=== PATIENT | female | born 1965 | race Caucasian/White ===

== ENCOUNTER 2024-05-30 14:28 | Emergency (ER) | payer BC, OTHER ==
[2024-05-30 15:10] LABS: Absolute Lymphocytes (CBC) 1.5 K/uL (0.7-4.9); Absolute Monocytes 0.6 K/uL (0.1-1.3); Absolute Neutrophil 4.2 K/uL (1.8-8.0); Basophils % 0.3 % (0-1.3); Eosinophils % 0.5 % (0-4.4); Hematocrit 39.6 % (36.0-45.0); Hemoglobin 13.5 g/dL (12.0-15.0); Lymphocytes % 23.2 % (15.3-44.8); MCH 31.9 pg (27.0-35.0); MCHC 34.2 g/dL (32.0-36.0); MCV 93.5 fL (80-100); MPV 6.4 fL (7.6-11.3); Platelets 376 thou/uL (152-406); RBC Red Blood Cell Count 4.23 M/uL (3.86-4.86); Red Cell Distribution Width 12.5 % (12.1-15.2)
[2024-05-30 15:14] LABS: PT Prothrombin Time 11.7 SECONDS (9.4-12.5); PTT, Activated Partial Thromb 27.3 SECONDS (24.3-36.9); Protime INR 1.05
[2024-05-30 15:17] LABS: Specific Gravity > 1.030 (1.005-1.030); Sqamous Epithelial <5 /HPF (None Seen); Transitional Epithelial <5 /HPF (None Seen); Urine Bacteria <20 /HPF (<20); Urine Bilirubin NEGATIVE (Negative); Urine Blood Negative (Negative); Urine Clarity Extremely Turbid (Clear); Urine Color Dark-Yellow (Yellow); Urine Culture Reflex Order REFLEXED; Urine Glucose NEGATIVE (Negative); Urine Ketones NEGATIVE (Negative); Urine Microscopic Reflex YN ORDER UMIC; Urine Mucus 4+ /HPF (None Seen); Urine Nitrite NEGATIVE (Negative); Urine Protein 1+ (Negative); Urine RBC <5 /HPF (None Seen); Urine Urobilinogen 1+ (Normal)
[2024-05-30 15:22] LABS: Albumin/Globulin Ratio 1.1 (1.1-1.8); Anion Gap 8.6 mEq/L (5.0-15.0); Bilirubin Total 0.6 mg/dL (0.2-1.0); Globulin 3.5 g/dL (2.3-3.5); Potassium 3.6 mEq/L (3.5-5.1); Protein, Total 7.5 g/dL (6.4-8.2)
[2024-05-30 15:27] LABS: Barbiturates NEGATIVE (NEGATIVE); Benzodiazepines NEGATIVE (NEGATIVE); Cocaine NEGATIVE (NEGATIVE); METHAMPHETAM POSITIVE (NEGATIVE); Methadone NEGATIVE (NEGATIVE); Opiates NEGATIVE (NEGATIVE); Phencyclidine NEGATIVE (NEGATIVE); THC Cannibis NEGATIVE (NEGATIVE)
--- NOTE | 2024-05-30 15:39 | RAD REPORT ---
EXAMINATION: MRI BRAIN WITHOUT CONTRAST CLINICAL INDICATION: AMS, aphasic TECHNIQUE: Multiplanar multisequence MR images of the brain were obtained without intravenous contras t. Unless otherwise specified, incidental findings do not require dedicated imaging follow-up. COMPARISON: No prior exam. FINDINGS: INTRACRANIAL: Diffusion-weighted images show no acute or early subacute infarction. No abnormal brain parenchymal signal. The ventricles are normal in size and morphology. No augmented susceptibility. There is no mass effect or midline shift. No abnormal extraaxial fluid collection. VASCULATURE: Normal signal voids in the larger intracranial arteries and dural venous sinuses. SINUSES: The paranasal sinuses and mastoid air cells are predominantly clear. BONE: The marrow signal pattern is within normal limits. IMPRESSION: Negative for acutre CVA or other acute intracranial finding.
--- NOTE | 2024-05-30 15:39 | RAD REPORT ---
EXAMINATION: ONE VIEW CHEST XR CLINICAL INDICATION: AMS TECHNIQUE: Frontal chest projection is submitted. Examination is limited by patient positioning and t echnique. COMPARISON: 02/03/2012 FINDINGS: The lungs are well inflated and clear. The heart is normal in size. No displaced fractures identified . Mild thoracic dextroscoliosis. IMPRESSION: No acute intrathoracic abnormalities.
[2024-05-30 16:37] LABS: SARS-CoV-2 Antigen CONTROL BLUE LINE VIS/BG OK; SARS-CoV-2 Antigen Rapid Res Negative (Negative)
[2024-05-30] MEDS ORDERED: NA CHLORIDE 0.9% 500 ML ONE (16:44)
--- NOTE | 2024-05-30 17:33 | ER ---
Nurse's Notes [facility] Name: Marielos Lee Age: 58 yrs Sex: Female : 1965 Arrival Date: 05/30/2024 Time: 14:28 Bed 3 Private MD: Diagnosis: Altered mental status, facial numbness, right upper extremity weakness;Generalized weakness, history of rheumatoid arthritis, right facial numbness, Presentation: 05/30 14:40 Chief complaint: Patient states: Dropped off by friend in ER bay outside. Pt opening ld1 eyes but not responding. Not responsive to painful stimuli. Coronavirus screen: At this time, the client does not indicate any symptoms associated with coronavirus-19. Ebola Screen: No symptoms or risks identified at this time. Initial Sepsis Screen: Does the patient meet any 2 criteria? No. Patient's initial sepsis screen is negative. Does the patient have a suspected source of infection? No. Patient's initial sepsis screen is negative. Risk Assessment: Do you want to hurt yourself or someone else? Patient reports no desire to harm self or others. Onset of symptoms was May 30, 2024. 14:40 Method Of Arrival: Other ld1 14:40 Acuity: JOSEPH 2 ld1 Triage Assessment: 14:45 General: Appears in no apparent distress. Behavior is inappropriate for age, ld1 unresponsive. Pain: Unable to use pain scale. Patient is disoriented. Patient is unresponsive. EENT: No signs and/or symptoms were reported regarding the EENT system. Neuro: Level of Consciousness is confused, Oriented to none. Cardiovascular: Capillary refill < 3 seconds Patient's skin is warm and dry. Rhythm is sinus rhythm. Respiratory: Airway is patent Respiratory effort is even, unlabored. GI: Abdomen is flat, non-distended. : No signs and/or symptoms were reported regarding the genitourinary system. Derm: No signs and/or symptoms reported regarding the dermatologic system. Musculoskeletal: No signs and/or symptoms reported regarding the musculoskeletal system. Historical: - Allergies: 15:14 No Known Allergies; ll1 - PMHx: 15:14 RA; ll1 - Immunization history:: Adult Immunizations up to date. - Family history:: not pertinent. - Hospitalizations: : No recent hospitalization is reported. - Social history:: Smoking status: unknown. Screenin:56 [facility] ED Fall Risk Assessment (Adult) History of falling in the last 3 months, ld1 including since admission No falls in past 3 months (0 pts) Confusion or Disorientation Yes (5 pts) Intoxicated or Sedated No (0 pts) Impaired Gait Yes (1 pt) Mobility Assist Device Used No (0 pt) Altered Elimination No (0 pt) Score/Fall Risk Level 3 or more points = High Risk Oriented to surroundings, Maintained a safe environment, Educated pt \T\ family on fall prevention, incl call for assistance when getting out of bed, Assessed \T\ reinforced patient's understanding of fall precautions, Provided non-skid footwear, Hourly rounding (assess needs \T\ fall precautionary measures) done, Used ambulatory aids as needed (educated on \T\ assisted with), Used gait belt as appropriate Implemented a Fall Risk Plan of Care, Apply high fall risk patient identification: yellow non skid footwear/ fall signage, Placed fall mat w/ non beveled edge next to bed, Activated bed/chair alarm, Remained w/in arm's length of patient and in sight while toileting, Offered frequent toileting (1:1 observation), Remained with patient while ambulating, Utilized family, sitter, or virtual drop wire operator as indicated. Abuse screen: Denies threats or abuse. Denies injuries from another. Nutritional screening: No deficits noted. Tuberculosis screening: No symptoms or risk factors identified. Assessment: 14:57 Reassessment: Patient and/or family updated on plan of care and expected duration. Pain ll1 level reassessed. to MRI via stretcher. 15:15 Reassessment: Pt back from MRI. Friend at bedside speaking with ER doctor. ld1 16:30 Reassessment: Patient appears in no apparent distress at this time. No changes from ld1 previously documented assessment. Pt responding at this time. Difficulty speaking has resolved. 17:39 Reassessment: Patient appears in no apparent distress at this time. No changes from ld1 previously documented assessment. Patient and/or family updated on plan of care and expected duration. Pain level reassessed. Patient states symptoms have improved. 18:02 Reassessment: Patient appears in no apparent distress at this time. No changes from ld1 previously documented assessment. Patient and/or family updated on plan of care and expected duration. Pain level reassessed. 18:38 Reassessment: Patient appears in no apparent distress at this time. No changes from ld1 previously documented assessment. Patient and/or family updated on plan of care and expected duration. Pain level reassessed. 19:52 Reassessment: Took over care of pt. Pt alert and oriented, no any distress noted. Pt ay denies CP, SOB, N/V. Pt on cardiac nurse, VSS. 22:00 Reassessment: REPORT CALLED TO [facility] ER. dd2 Vital Signs: 14:24 BP 137 / 67; Pulse 88; ld1 14:30 BP 140 / 73; Pulse 87; Resp 18; Pulse Ox 100% on R/A; ld1 14:40 BP 140 / 73; Pulse 83; Resp 16; Temp 98.2(TE); Pulse Ox 100% on R/A; Weight 54.43 kg; ld1 Height 5 ft. 4 in. ; 14:45 BP 161 / 76; Pulse 80; Resp 17; Pulse Ox 100% on R/A; ld1 15:56 BP 139 / 68; Pulse 82; Resp 13; Pulse Ox 100% on R/A; ld1 16:52 BP 133 / 69; Pulse 83; Resp 11; Pulse Ox 100% on R/A; ld1 17:39 BP 127 / 68; Pulse 77; Resp 12; Pulse Ox 100% on R/A; ld1 18:02 BP 129 / 68; Pulse 77; Resp 13; Pulse Ox 100% on R/A; ld1 18:38 BP 116 / 61; Pulse 74; Resp 18; Pulse Ox 100% on R/A; ld1 19:15 BP 130 / 65; Pulse 78; Resp 16; Pulse Ox 100% on R/A; dd2 20:15 BP 134 / 67; Pulse 84; Resp 15; Pulse Ox 100% on R/A; dd2 21:15 BP 128 / 63; Pulse 75; Resp 15; Pulse Ox 100% on R/A; dd2 22:05 BP 120 / 63; Pulse 73; Resp 15; Pulse Ox 100% on R/A; dd2 14:40 Body Mass Index 20.60 (54.43 kg, 162.56 cm) ld1 [place] Coma Score: 21:10 Eye Response: spontaneous(4). Motor Response: obeys commands(6). Verbal Response: sp4 oriented(5). Total: 15. NIH Stroke Scale Scores: 21:19 NIHSS Score: 11 sp4 ED Course: 14:25 No provider procedures requiring assistance completed. ld1 14:25 Patient has correct armband on for positive identification. Placed in gown. Bed in low ld1 position. Call light in reach. Side rails up X2. court recording monitor on. Pulse ox on. NIBP on. Door closed. Noise minimized. Warm blanket given. 14:29 Patient arrived in ED. bd 14:33 Tera Velasquez MD is Attending Physician. rn 14:42 Triage completed. ld1 14:42 Inserted saline lock: 20 gauge in right antecubital area, using aseptic technique. ld1 Blood collected. Flushed with 10 mL NS. 14:45 Arm band placed on right wrist. ld1 14:57 Blood Culture Adult (2) Sent. bc6 14:57 CBC with Diff Sent. bc6 14:57 CMP Sent. bc6 14:57 Lactate w/ 2H reflex if indic. Sent. bc6 14:57 Protime (+inr) Sent. bc6 14:57 Ptt, Activated Sent. bc6 14:57 Urinalysis w/ reflexes Sent. bc6 14:57 pt daughter..........[phone] Yaya. bd 15:16 Brain Wo Cont MRI In Process Unspecified. EDMS 15:32 Chest Single View XRAY In Process Unspecified. EDMS 15:55 Chelsea Bocanegra, RN is Primary Nurse. ld1 16:04 Flu Sent. ld1 16:04 SARS-COV-2 Antigen Rapid Sent. ld1 16:52 AMMONIA Sent. ld1 16:52 ETOH Level Sent. ld1 16:52 Salicylate Sent. ld1 16:52 Acetaminophen Sent. ld1 17:02 initiated transfer to [facility]. bd 17:14 pt denied at [facility] due to no capacity at this time, Per Carina. bd 17:32 Arsen Varner MD is Hospitalizing Provider. rn 19:[address] [facility] 1900- no one answered. kmf 19:10 Attending Physician role handed off by Tera Velasquez MD sp3 19:10 Kristine Jennings MD is Attending Physician. sp3 19:10 called [facility] for transfer spoke with Will. [facility] declined due to capacity. kmf 19:26 initiated transfer with [facility]- spoke with Marnie. [facility] decided due to capacity. kmf 20:10 re-initiated transfer with [facility] transfer, spoke with Samaria. kmf 20:13 Attending Physician role handed off by Kristine Jennings MD sp4 20:13 Missael Nicolas MD is Attending Physician. sp4 21:40 pt was accepted to [facility] ER - by Dr. Angeles, R \T\ 2135. Samaria Hodges, 2136. [facility] number for nurse to nurse report [phone] - [facility] to transfer pt once nurse to nurse is complete. 22:45 Patient transferred, IV remains in place. dd2 22:45 Provided Education on: transfer education. dd2 Administered Medications: 16:52 Drug: NS 0.9% IV 500 ml IV at bolus once; to be given as a bolus over 30 minutes Route: ld1 IV; Rate: bolus; Site: right antecubital; 19:55 Follow up: Response: No adverse reaction; IV Status: Completed infusion; IV Intake: ay 500ml 20:54 Drug: Methocarbamol PO 1500 mg PO once Route: PO; sb4 21:24 Follow up: Response: No adverse reaction dd2 20:55 Drug: morphine IVP or IV 4 mg IVP once over 4 mins Route: IVP; Infused Over: 4 mins; sb4 Site: right antecubital; 21:10 Follow up: Response: No adverse reaction dd2 20:55 Drug: Ondansetron IVP 4 mg IVP once; over 2 minutes Route: IVP; Site: right antecubital;sb4 21:10 Follow up: Response: No adverse reaction dd2 22:45 Drug: morphine IVP or IV 2 mg IVP once over 4 mins Route: IVP; Infused Over: 4 mins; dd2 Site: right antecubital; 22:48 Follow up: Response: Medication administered at discharge. dd2 22:45 Drug: Ondansetron IVP 4 mg IVP once; over 2 minutes Route: IVP; Site: right antecubital;dd2 22:48 Follow up: Response: Medication administered at discharge. dd2 Intake: 19:55 IV: 500ml; Total: 500ml. ay Outcome: 17:33 Decision to Hospitalize by Provider. rn 19:12 ER care complete, transfer ordered by MD. sp3 22:45 Transferred by ground EMS to [facility], Transfer form completed. dd2 22:45 Condition: stable 22:45 Instructed on the need for transfer, Demonstrated understanding of instructions, 22:47 Patient left the ED. dd2 NIH Stroke Scale - NIH Stroke Score Date: 05/30/2024 Time: 21:19 Total Score = 11 10. Dysarthria (speech clarity - read or repeat words) - 0(Normal) 11. Extinction and Inattention (visual/tactile/auditory/spatial/personal) - 0(No abnormality) 1a. Level of Consciousness (LOC) - 0(Alert) 1b. Level of Consciousness (LOC) (Month \T\ Age) - 0(Both) 1c. LOC Commands (Open \T\ Closes Eyes/Parts Counter Sales Person) - 0(Both) 2. Best Gaze (Lateral Gaze Paresis) - 0(Normal) 3. Visual Field Loss - 0(No visual loss) 4. Facial Palsy - 0(Normal) 5a. Left Arm: Motor (10-second hold) - 2(Drift, some effort against gravity) 5b. Right Arm: Motor (10-second hold) - 2(Drift, some effort against gravity) 6a. Left Leg: Motor (5-second hold - always test supine) - 3(No effort against gravity) 6b. Right Leg: Motor (5-second hold - always test supine) - 3(No effort against gravity) 7. Limb Ataxia (finger/nose \T\ heel/deal - test with eyes open) - 0(Absent) 8. Sensory Loss (pinprick arms/legs/face) - 1(Mild to moderate loss) 9. Best Language: Aphasia (description/naming/reading) - 0(No aphasia) Initials: sp4 Signatures: Dispatcher [employer] EDMS Fatoumata Pierce Roman, MD MD rn Lewis, Lynsay, RN RN ll1 Chelsea Bocanegra RN RN ld1 Kristine Jennings MD MD sp3 Radha Cano, PA-C PA-C sb4 Amina Navas Sergey, MD MD sp4 Nayeli Gregory [facility] FOZIA, DINORA, RN RN dd2 Yakubu, Awudu, RN RN ay
--- NOTE | 2024-05-30 17:33 | EDPHYS ---
Physician Documentation [facility] Name: Marielos Lee Age: 58 yrs Sex: Female : 1965 Arrival Date: 05/30/2024 Time: 14:28 Bed 3 Private MD: ED Physician Missael Nicolas HPI: 05/30 14:44 This 58 yrs old Female presents to ER via Other with complaints of AMS. rn 14:44 The patient presents with decreased responsiveness. Onset: The symptoms/episode rn began/occurred at an unknown time. Current symptoms: In the emergency department the patient's symptoms are unchanged from the initial presentation. It is unknown whether or not the patient has had similar symptoms in the past. Patient dropped off by Dr. Julio C Aranda, he was a bystander noticed her altered and unresponsive in her car. I spoke with Dr. Aranda who stated initially patient was able to answer his questions and when asked last known normal she told him that she last went to [facility] yesterday and felt extreme fatigue, but could not give more specific symptoms than that. He said that she was answering with few word sentences and appeared very weak, unable to walk or support herself. The patient had told him that she has rheumatoid arthritis and had just taken all of her medication and wants, unknown medication type or name.. 21:20 Patient's medications include hydroxychloroquine 200 mg p.o. twice daily, Crestor, sp4 telmisartan HCTZ, trazodone, progesterone 400 mg daily, also Dextromethorphan/bupropion (DXM/BUP) Auvelity 45-105 mg . Patient care was assumed from Dr. Jennings who reports that patient is awaiting for transfer to the [facility].. Historical: - Allergies: 15:14 No Known Allergies; ll1 - PMHx: 15:14 RA; ll1 - Immunization history:: Adult Immunizations up to date. - Family history:: not pertinent. - Hospitalizations: : No recent hospitalization is reported. - Social history:: Smoking status: unknown. ROS: 14:44 Unable to obtain ROS due to altered mental status, rn 20:14 Constitutional: Negative for fever, chills, and weight loss, positive for decreased sp4 responsiveness and fatigue. Exam: 14:44 Constitutional: This is a well developed, well nourished patient who is awake, opens rn eyes but does not follow commands. Head/Face: Normocephalic, atraumatic. Eyes: Pupils equal round and reactive to light, extra-ocular motions intact. No nystagmus ENT: Dry mucous membranes, no stridor Cardiovascular: Regular rate and rhythm . No pulse deficits. Respiratory: No increased work of breathing, no retractions or nasal flaring. Abdomen/GI: Soft, non-tender Skin: Warm, dry MS/ Extremity: Pulses equal, no cyanosis. Neuro: Awake, not following commands. Attempts to speak but cannot get words out. Responsive to pain 15:42 ECG was reviewed by the Attending Physician. rn 21:10 Constitutional: This is a well developed, well nourished patient who is awake, alert, sp4 and in no acute distress. Head/Face: Normocephalic, atraumatic. Eyes: Pupils equal round and reactive to light, extra-ocular motions intact. Lids and lashes normal. Conjunctiva and sclera are not injected. Cornea within normal limits. Periorbital areas with no swelling, redness, or edema. ENT: Nares patent. No nasal discharge, no septal abnormalities noted. Tympanic membranes are normal and external auditory canals are clear. Oropharynx with no redness, swelling, or masses, exudates, or evidence of obstruction, uvula midline. Mucous membranes moist. Neck: Trachea midline, no thyromegaly or masses palpated, and no cervical lymphadenopathy. Supple, full range of motion without nuchal rigidity, or vertebral point tenderness. Chest/axilla: Normal chest wall appearance and motion. Nontender with no deformity. No lesions are appreciated. Cardiovascular: Regular rate and rhythm with a normal S1 and S2. No gallops, murmurs, or rubs. Normal PMI, no JVD. No pulse deficits. Respiratory: Lungs have equal breath sounds bilaterally, clear to auscultation and percussion. No rales, rhonchi or wheezes noted. No increased work of breathing, no retractions or nasal flaring. Abdomen/GI: Soft, with normal bowel sounds. No distension or tympany. No guarding or rebound. No evidence of tenderness throughout. Back: No spinal tenderness. No costovertebral tenderness. Skin: Warm, dry with normal turgor. Normal color with no rashes, no lesions, and no evidence of cellulitis. MS/ Extremity: Pulses equal, no cyanosis. Neurovascular intact. Full, normal range of motion. Persistent generalized weakness precluding ambulation. Neuro: Awake and alert, GCS 15, oriented to person, place, time, and situation. Cranial nerves II-XII grossly intact. Exam is limited secondary to diffuse generalized weakness. No sign of focal weakness, no sign of lateralizing weakness. Patient does seem to have numbness on the right side of the face. Vital Signs: 14:24 BP 137 / 67; Pulse 88; ld1 14:30 BP 140 / 73; Pulse 87; Resp 18; Pulse Ox 100% on R/A; ld1 14:40 BP 140 / 73; Pulse 83; Resp 16; Temp 98.2(TE); Pulse Ox 100% on R/A; Weight 54.43 kg; ld1 Height 5 ft. 4 in. ; 14:45 BP 161 / 76; Pulse 80; Resp 17; Pulse Ox 100% on R/A; ld1 15:56 BP 139 / 68; Pulse 82; Resp 13; Pulse Ox 100% on R/A; ld1 16:52 BP 133 / 69; Pulse 83; Resp 11; Pulse Ox 100% on R/A; ld1 17:39 BP 127 / 68; Pulse 77; Resp 12; Pulse Ox 100% on R/A; ld1 18:02 BP 129 / 68; Pulse 77; Resp 13; Pulse Ox 100% on R/A; ld1 18:38 BP 116 / 61; Pulse 74; Resp 18; Pulse Ox 100% on R/A; ld1 19:15 BP 130 / 65; Pulse 78; Resp 16; Pulse Ox 100% on R/A; dd2 20:15 BP 134 / 67; Pulse 84; Resp 15; Pulse Ox 100% on R/A; dd2 21:15 BP 128 / 63; Pulse 75; Resp 15; Pulse Ox 100% on R/A; dd2 22:05 BP 120 / 63; Pulse 73; Resp 15; Pulse Ox 100% on R/A; dd2 14:40 Body Mass Index 20.60 (54.43 kg, 162.56 cm) ld1 NIH Stroke Scale Scores: 21:19 NIHSS Score: 11 sp4 Adena Coma Score: 21:10 Eye Response: spontaneous(4). Motor Response: obeys commands(6). Verbal Response: sp4 oriented(5). Total: 15. MDM: 14:33 Medical Screening Exam initiated rn 14:55 ED course: Patient answer some questions now, yes or no answers. Patient reports no rn when asked if any recent surgeries or implanted metal such as pacemaker or stent or stimulator. Patient understands that she is going to MRI to rule out stroke and confirms that the last time she felt normal was yesterday. Patient is having extreme weakness and a lot of difficulty getting words out at this time but more responsive than when she initially presented.. 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 15:15 ED course: Attempted to call number provided in chart and attempt to gain more rn information, phone has been disconnected. 15:27 ED course: Spoke with 2 colleagues and her daughter, 1 colleague states last known rn normal was 10 AM this morning when she seemed okay. Another colleague states at noon she was already having trouble with her speech and generalized weakness with fatigue. Daughter states that she left early for class and she did not see her mother today but mother's boyfriend stated at 1:00 PM she was complaining of weakness and extreme fatigue. Daughter states that grandmother is currently ill with COVID and her mother was wondering if she also had COVID. Reports mild cough recently. No fever. Given last known normal 10 AM, patient would not be candidate for TNK anyway but does seem more global or metabolic in nature.. 15:41 ED course: MRI brain negative for acute CVA per radiology.. rn 16:27 ED course: Patient's daughter has arrived, patient is doing much better, now having rn full conversation, much more alert, states feels better. MRI brain negative for acute infarction or other acute findings. Other labs still pending. Leaning towards observation since patient not back to baseline at this time.. 17:27 Differential Diagnosis: CVA, electrolyte abnormality, hypoglycemia, volume depletion. rn 17:28 Data reviewed: vital signs, nurses notes, lab test result(s), EKG, radiologic studies, rn MRI, plain films, and as a result, I will admit patient. Consideration of Admission/Observation Patient was admitted/placed on observation. Escalation of care including admission/observation considered. Counseling: I had a detailed discussion with the patient and/or guardian regarding the historical points, exam findings, and any diagnostic results supporting the discharge/admit diagnosis, lab results, radiology results, the need for further work-up and treatment in the hospital. ED course: [facility] given [facility]ist is [facility], we initiated transfer but [facility] at capacity, unable to accommodate patient. Patient okay being admitted here. Patient continues to improve, is more talkative and alert but still not back to baseline. Reports generalized weakness and fatigue.. 19:21 ED course: Patient evaluated by internal medicine and case discussed with Dr. Schulz sp3 our neurologist. They feel that patient will need an EEG and EMG which is not available at this facility. They request us to transfer patient. We will initiate transfer to [facility] or other available facility.. 20:17 ED course: EXAMINATION: ONE VIEW CHEST XR CLINICAL INDICATION: AMS TECHNIQUE: Frontal sp4 chest projection is submitted. Examination is limited by patient positioning and technique. COMPARISON: 02/03/2012 FINDINGS: The lungs are well inflated and clear. The heart is normal in size. No displaced fractures identified. Mild thoracic dextroscoliosis. IMPRESSION: No acute intrathoracic abnormalities.. 20:19 ED course: EXAMINATION: MRI BRAIN WITHOUT CONTRAST CLINICAL INDICATION: AMS, aphasic sp4 TECHNIQUE: Multiplanar multisequence MR images of the brain were obtained without intravenous contrast. Unless otherwise specified, incidental findings do not require dedicated imaging followup. COMPARISON: No prior exam. FINDINGS: INTRACRANIAL: Diffusion-weighted images show no acute or early subacute infarction. No abnormal brain parenchymal signal. The ventricles are normal in size and morphology. No augmented susceptibility. There is no mass effect or midline shift. No abnormal extraaxial fluid collection. VASCULATURE: Normal signal voids in the larger intracranial arteries and dural venous sinuses. SINUSES: The paranasal sinuses and mastoid air cells are predominantly clear. BONE: The marrow signal pattern is within normal limits. IMPRESSION: Negative for acutre CVA or other acute intracranial finding.. 21:18 ED course: Patient was discussed with neurologist at [facility] and sp4 accepted for transfer. Full assessment reveals patient has profuse generalized weakness and not able to sit up or stand up. . 21:19 ED course: MRI did rule out CVA. Patient remains with generalized weakness and sp4 nonambulatory at this time. Will transfer for further evaluation such as electromyelogram or electroencephalogram. . 05/30 14:38 Order name: Blood Culture Adult (2) rn 05/30 14:38 Order name: CBC with Diff; Complete Time: 15:28 rn 05/30 14:38 Order name: CMP; Complete Time: 15:28 rn 05/30 14:38 Order name: Lactate w/ 2H reflex if indic.; Complete Time: 15:28 rn 05/30 14:38 Order name: Protime (+inr); Complete Time: 15:28 rn 05/30 14:38 Order name: Ptt, Activated; Complete Time: 15:28 rn 05/30 14:38 Order name: Urinalysis w/ reflexes; Complete Time: 15:28 rn 05/30 14:57 Order name: Urine Drug Screen; Complete Time: 15:28 rn 05/30 15:13 Order name: Acetaminophen; Complete Time: 18:42 rn 05/30 15:13 Order name: ETOH Level; Complete Time: 17:22 rn 05/30 15:13 Order name: Salicylate; Complete Time: 17:22 rn 05/30 15:13 Order name: AMMONIA; Complete Time: 17:22 rn 05/30 15:21 Order name: Urine Culture EDTX 05/30 15:26 Order name: SARS-COV-2 Antigen Rapid; Complete Time: 16:38 rn 05/30 15:26 Order name: Flu; Complete Time: 17:14 rn 05/30 20:19 Order name: Troponin High Sensitivity; Complete Time: 21:24 sp4 05/30 20:36 Order name: CRP; Complete Time: 22:32 sp4 05/30 20:36 Order name: CK; Complete Time: 22:32 sp4 05/30 14:38 Order name: Chest Single View XRAY; Complete Time: 15:41 rn 05/30 14:38 Order name: Brain Wo Cont MRI; Complete Time: 15:40 rn 05/30 15:13 Order name: EKG; Complete Time: 15:13 rn 05/30 14:38 Order name: Accucheck; Complete Time: 14:43 rn 05/30 14:38 Order name: Cardiac monitoring; Complete Time: 14:42 rn 05/30 14:38 Order name: Cath; Complete Time: 14:57 rn 05/30 14:38 Order name: EKG - Nurse/Tech; Complete Time: 14:43 rn 05/30 14:38 Order name: IV Saline Lock - Large Bore; Complete Time: 14:43 rn 05/30 14:38 Order name: Labs collected and sent; Complete Time: 14:43 rn 05/30 14:38 Order name: O2 Per Protocol; Complete Time: 14:43 rn 05/30 14:38 Order name: O2 Sat Monitoring; Complete Time: 14:43 rn 05/30 14:38 Order name: Vital Signs; Complete Time: 14:43 rn EC:42 Rate is 86 beats/min. Rhythm is regular. QRS [place] is Normal. MA interval is normal. QRS rn interval is normal. QT interval is normal. No Q waves. T waves are Normal. No ST changes noted. Clinical impression: Normal ECG. Interpreted by me. Reviewed by me. Administered Medications: 16:52 Drug: NS 0.9% IV 500 ml IV at bolus once; to be given as a bolus over 30 minutes Route: ld1 IV; Rate: bolus; Site: right antecubital; 19:55 Follow up: Response: No adverse reaction; IV Status: Completed infusion; IV Intake: ay 500ml 20:54 Drug: Methocarbamol PO 1500 mg PO once Route: PO; sb4 21:24 Follow up: Response: No adverse reaction dd2 20:55 Drug: morphine IVP or IV 4 mg IVP once over 4 mins Route: IVP; Infused Over: 4 mins; sb4 Site: right antecubital; 21:10 Follow up: Response: No adverse reaction dd2 20:55 Drug: Ondansetron IVP 4 mg IVP once; over 2 minutes Route: IVP; Site: right antecubital;sb4 21:10 Follow up: Response: No adverse reaction dd2 22:45 Drug: morphine IVP or IV 2 mg IVP once over 4 mins Route: IVP; Infused Over: 4 mins; dd2 Site: right antecubital; 22:48 Follow up: Response: Medication administered at discharge. dd2 22:45 Drug: Ondansetron IVP 4 mg IVP once; over 2 minutes Route: IVP; Site: right antecubital;dd2 22:48 Follow up: Response: Medication administered at discharge. dd2 Disposition Summary: 05/30/24 19:12 Transfer Ordered Notes: Transfer Location: [facility] sp3 Reason: Higher level of care sp3 Condition: Stable(05/30/24 19:12) sp3 Problem: new(05/30/24 19:12) sp3 Symptoms: are unchanged(05/30/24 19:12) sp3 Accepting Physician: [facility] TBD(05/30/24 22:47) dd2 Diagnosis - Altered mental status, facial numbness, right upper extremity weakness sp3 - Generalized weakness, history of rheumatoid arthritis, right facial numbness, sp4 Forms: - Medication Reconciliation Form sp3 - SBAR form sp3 NIH Stroke Scale - NIH Stroke Score Date: 05/30/2024 Time: 21:19 Total Score = 11 10. Dysarthria (speech clarity - read or repeat words) - 0(Normal) 11. Extinction and Inattention (visual/tactile/auditory/spatial/personal) - 0(No abnormality) 1a. Level of Consciousness (LOC) - 0(Alert) 1b. Level of Consciousness (LOC) (Month \T\ Age) - 0(Both) 1c. LOC Commands (Open \T\ Closes Eyes/Client Service Associate) - 0(Both) 2. Best Gaze (Lateral Gaze Paresis) - 0(Normal) 3. Visual Field Loss - 0(No visual loss) 4. Facial Palsy - 0(Normal) 5a. Left Arm: Motor (10-second hold) - 2(Drift, some effort against gravity) 5b. Right Arm: Motor (10-second hold) - 2(Drift, some effort against gravity) 6a. Left Leg: Motor (5-second hold - always test supine) - 3(No effort against gravity) 6b. Right Leg: Motor (5-second hold - always test supine) - 3(No effort against gravity) 7. Limb Ataxia (finger/nose \T\ heel/deal - test with eyes open) - 0(Absent) 8. Sensory Loss (pinprick arms/legs/face) - 1(Mild to moderate loss) 9. Best Language: Aphasia (description/naming/reading) - 0(No aphasia) Initials: sp4 Signatures: Dispatcher [employer] EDMS Tera Velasquez MD MD rn Lewis, Lynsay, RN RN ll1 Chelsea Bocanegra, RN RN ld1 Kristine Jennings MD MD sp3 Radha Cano PAJennifer PA-C Missael Pereira MD MD sp4 DINORA MARCELO, RN RN dd2 Chance Holt RN Corrections: (The following items were deleted from the chart) 14:39 14:39 BLOOD CULTURE*+BA.LAB.BRZ ordered. EDMS EDMS 14:39 14:39 CBC+H.LAB.BRZ ordered. EDMS EDMS 14:39 14:39 COMPREHENSIVE METABOLIC PANEL+C.LAB.BRZ ordered. EDMS EDMS 14:39 14:39 LACTATE+C.LAB.BRZ ordered. EDMS EDMS 14:39 14:39 PROTIME (+INR)+COAG.LAB.BRZ ordered. EDMS EDMS 14:39 14:39 PTT, ACTIVATED+COAG.LAB.BRZ ordered. EDMS EDMS 14:39 14:39 Urinalysis+U.LAB.BRZ ordered. EDMS EDMS 14:39 14:39 Chest Single View+RAD.RAD.BRZ ordered. EDMS EDMS 14:39 14:39 Brain Wo Cont+MRI.RAD.BRZ ordered. EDMS EDMS 15:01 14:58 URINE DRUG SCREEN+UC.LAB.BRZ ordered. EDMS EDMS 19:11 17:33 Inpatient Admission rn sp3 19:11 17:33 Arsen Varner rn sp3 19:11 17:33 Telemetry/MedSurg (observation) rn sp3 19:11 17:33 Stable rn sp3 19:11 17:33 new rn sp3 19:11 17:33 have improved rn sp3 19:11 17:33 Standard rn sp3 19:11 17:33 rn sp3 19:11 17:33 Altered mental status, unspecified rn sp3 20:19 20:19 Troponin High Sensitivity+C.LAB.BRZ ordered. EDMS EDMS 21:27 [facility] T[facility] sp3 sp4 22:47 21:27 [facility] TBD sp4 dd2
[2024-05-30] MEDS ORDERED: ONDANSETRON 4 MG/2 ML VIAL ONE ×2 (20:50→22:41)
[2024-05-30] MEDS ORDERED: MORPHINE 4 MG/ML SYR ONE (20:51)
[2024-05-30] MEDS ORDERED: methocarbamoL 750 MG TAB ONE (20:51)
[2024-05-30 22:22] LABS: C-Reactive Protein < 2.90 mg/L (<3.00); Creatine Phosphokinase 147 U/L (26-192)
[2024-05-30] MEDS ORDERED: MORPHINE 2 MG/ML SYR ONE (22:41)
[2024-05-30 23:11] VITALS: O2SAT 100
[2024-05-30 23:17] VITALS: TEMP 98.2
[2024-05-30 23:29] VITALS: BP 120/63
--- NOTE | 2024-06-05 11:03 | EKG ---
Test Date: 2024-05-30 Test Time: 14:37:01 Circuit Designer: EVELYNE MEASUREMENT RESULTS: Intervals: Rate: 86 OH: 176 QRSD: 68 QT: 390 QTc: 466 [place]: P: 81 OH: 176 QRS: 63 T: 84 INTERPRETIVE STATEMENTS: Normal sinus rhythm Normal ECG Compared to ECG 02/03/2012 13:45:31 No significant changes Electronically Signed On 06-05-24 10:57:41 NET ARCHITECT by Sebastian Ma
== END 2024-05-30 22:47 | disposition short-term general hospital (02) ==
LOC: ER 14:28
DX: R41.82 Altered mental status, unspecified (principal); R20.0 Anesthesia of skin; R53.1 Weakness; M06.9 Rheumatoid arthritis, unspecified; R53.83 Other fatigue; Z11.52 Encounter for screening for COVID-19
CPT/HCPCS: 96361; 93005; 87040 ×2; 87088; 85025; 81001; 87086; 36415; 82140; 82550; 85610; 83605; 85730; 87077; 87186; 84484; 80053; 80307; 86140; 87804 ×2; 71045; 70551; 96375; 96374; 99285; 80143; 80179; 82077; 87811; J2270; J2405 ×2; J7040